=== PATIENT | female | born 1990 | race Caucasian/White ===

== ENCOUNTER 2016-10-14 01:09 | Outpatient (CLI) | payer OTHER | END 2016-10-14 03:25 | disposition other institution (70) | LOC: GENOP 01:09 | DX: O60.03 Preterm labor without delivery, third trimester (principal); Z3A.33 33 weeks gestation of pregnancy | CPT/HCPCS: 51702; 76815; 96366; 96367; 96372; 96374; J2300; J2405; J3105; J3475; J7120 ==